=== PATIENT | male | born 1975 | race Two or more races ===

== ENCOUNTER 2018-03-08 15:04 | Emergency (ER) | payer SELFPAY ==
[~2018-03-08] VITALS: Ht 167.6 cm; Wt 72.6 kg
[2018-03-08 15:12] VITALS: BP 143/91
[2018-03-08 15:42] VITALS: BP 143/91
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
== END 2018-03-08 15:46 | disposition home or self-care (01) ==
LOC: EMR 15:42
DX: Z04.1 Encounter for examination and observation following transport accident (principal)
CPT/HCPCS: 99282